=== PATIENT | male | born 1960 | race Caucasian/White ===

== ENCOUNTER 2016-09-21 11:35 | Inpatient (IN) | payer OTHER ==
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
[2016-09-21] MEDS ORDERED: MORPHINE SULFATE 10 MG/ML INJ IV ONE (13:11)
[2016-09-21] MEDS ORDERED: ONDANSETRON 4 MG TAB.RAPDIS PO PRN (14:29)
[2016-09-21] MEDS ORDERED: IPRATROPIUM/ALBUTEROL 0.5-2.5 MG/3 ML AMPUL NEB PRN (14:29)
[2016-09-21] MEDS ORDERED: GLUCAGON,HUMAN RECOMB 1 MG INJ SUBCUT PRN (14:29)
[2016-09-21] MEDS ORDERED: ACETAMINOPHEN 325 MG TABLET PO PRN (14:29)
[2016-09-21] MEDS ORDERED: ONDANSETRON HCL INJ/PF 4 MG/2 ML SDV IV PRN (14:29)
[2016-09-21] MEDS ORDERED: DEXTROSE 40% GEL 15 GM TUBE PO PRN ×2 (14:29)
[2016-09-21] MEDS ORDERED: NORMAL SALINE 1000 ML 1,000 ML IV PRN (14:29)
[2016-09-21] MEDS ORDERED: DEXTROSE 50%-WATER 25 GM/50 ML DISP.SYRIN IV PRN ×2 (14:29)
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
[2016-09-21 15:57] LABS: ABSOLUTE BASOPHILS # (AUTO) 0.1 10^3/uL (0.0-0.2); ABSOLUTE EOSINOPHILS # (AUTO) 0.1 10^3/uL (0.0-0.6); ABSOLUTE LYMPHOCYTES (AUTO) 1.4 10^3/uL (0.5-4.7); ABSOLUTE MONOCYTES (AUTO) 0.5 10^3/uL (0.1-1.4); ABSOLUTE NEUT (AUTO) 8.2 10^3/uL (1.7-8.2); BASOPHILS % (AUTO) 0.7 % (0-2); EOSINOPHILS % (AUTO) 0.6 % (0-6); HEMATOCRIT 45.8 % (37.9-51.0); HEMOGLOBIN 15.5 g/dL (13.5-17.0); HGB HCT DIFFERENCE 0.7; LYMPHOCYTES % (AUTO) 13.8 % (13-45); MEAN CORPUSCULAR HEMOGLOBIN 32.2 pg (27.0-33.4); MEAN CORPUSCULAR HGB CONC 33.9 g/dL (32.0-36.0); MEAN CORPUSCULAR VOLUME 95 fl (80-97); MONOCYTES % (AUTO) 5.3 % (3-13); RED BLOOD COUNT 4.82 10^6/uL (4.35-5.55); RED CELL DISTRIBUTION WIDTH 12.6 % (11.5-14.0); SEGMENTED NEUTROPHILS % (AUTO) 79.6 % (42-78); WHITE BLOOD COUNT 10.3 10^3/uL (4.0-10.5)
[2016-09-21 16:24] LABS: ALANINE AMINOTRANSFERASE 25 U/L (21-72); ALKALINE PHOSPHATASE 63 U/L (38-126); ANION GAP 11 (5-19); ASPARTATE AMINO TRANSFERASE 23 U/L (17-59); BILIRUBIN,DIRECT 0.5 mg/dL (0.0-0.4); BLOOD UREA NITROGEN 8 mg/dL (7-20); CALCIUM 9.3 mg/dL (8.4-10.2); CARBON DIOXIDE 24 mmol/L (22-30); CHLORIDE 104 mmol/L (98-107); CREATININE RESULT 0.63 mg/dL (0.52-1.25); GLUCOSE 100 mg/dL (75-110); POTASSIUM 4.1 mmol/L (3.6-5.0); SODIUM 139.1 mmol/L (137-145); TOTAL PROTEIN 6.6 g/dL (6.3-8.2)
[2016-09-21 18:10] LABS: PROTHROMBIN TIME 12.9 SEC (11.4-15.4)
[2016-09-21 18:11] LABS: PARTIAL THROMBOPLASTIN TIME 34.9 SEC (23.5-35.8)
[2016-09-21] MEDS: NICOTINE 14 MG/24 HR PATCH.TD24 TD SCH (18:28)
[2016-09-21] MEDS: MORPHINE SULFATE 10 MG/ML INJ IV PRN ×2 (18:29→22:01)
--- NOTE | 2016-09-21 18:55 | EKG REPORT ---
SEVERITY:- BORDERLINE ECG - SINUS RHYTHM BORDERLINE INFERIOR Q WAVES : Confirmed by: Wero Ramos MD 21-Sep-2016 18:55:07
[2016-09-21 18:59] LABS: APPEARANCE,URINE CLEAR; BILIRUBIN,URINE NEGATIVE (NEGATIVE); GLUCOSE, URINE NEGATIVE (NEGATIVE); KETONES,URINE NEGATIVE (NEGATIVE); LEUKOCYTE ESTERASE,URINE NEGATIVE (NEGATIVE); NITRITE,URINE NEGATIVE (NEGATIVE); PROTEIN,URINE NEGATIVE (NEGATIVE); URINE SPECIFIC GRAVITY 1.015; UROBILINOGEN,URINE NEGATIVE mg/dL (<2.0)
[2016-09-21] MEDS: FAMOTIDINE 20 MG TABLET PO SCH (21:06)
[2016-09-21] MEDS ORDERED: RINGERS SOLUTION,LACTATED 1,000 ML IV PRN (23:59)
[2016-09-22] MEDS: MORPHINE SULFATE 10 MG/ML INJ IV PRN ×4 (02:43→18:50)
[2016-09-22 05:44] LABS: HEMATOCRIT 42.5 % (37.9-51.0); HEMOGLOBIN 14.6 g/dL (13.5-17.0); HGB HCT DIFFERENCE 1.3; MEAN CORPUSCULAR HEMOGLOBIN 32.6 pg (27.0-33.4); MEAN CORPUSCULAR HGB CONC 34.3 g/dL (32.0-36.0); MEAN CORPUSCULAR VOLUME 95 fl (80-97); RED BLOOD COUNT 4.46 10^6/uL (4.35-5.55); RED CELL DISTRIBUTION WIDTH 12.8 % (11.5-14.0); WHITE BLOOD COUNT 8.1 10^3/uL (4.0-10.5)
[2016-09-22 06:07] LABS: ANION GAP 12 (5-19); BLOOD UREA NITROGEN 8 mg/dL (7-20); CALCIUM 8.9 mg/dL (8.4-10.2); CARBON DIOXIDE 24 mmol/L (22-30); CHLORIDE 106 mmol/L (98-107); CREATININE RESULT 0.61 mg/dL (0.52-1.25); GLUCOSE 92 mg/dL (75-110); POTASSIUM 3.9 mmol/L (3.6-5.0); SODIUM 141.5 mmol/L (137-145)
[2016-09-22] MEDS ORDERED: CEFAZOLIN INJ 1 GM VIAL ONE (07:33)
[2016-09-22] MEDS ORDERED: IBUPROFEN INJ 800 MG/8 ML VIAL IV ONE (07:49)
[2016-09-22] MEDS ORDERED: ACETAMINOPHEN 100 ML IV ONE (07:49)
[2016-09-22] MEDS ORDERED: MIDAZOLAM 2 MG/2 ML INJ ONE (07:49)
[2016-09-22] MEDS ORDERED: KETAMINE HCL INJ 500 MG/10 ML VIAL ONE (07:49)
[2016-09-22] MEDS ORDERED: PROPOFOL INJ 200 MG/20 ML VIAL IV ONE (07:49)
[2016-09-22] MEDS ORDERED: ONDANSETRON HCL INJ/PF 4 MG/2 ML SDV ONE (07:49)
[2016-09-22] MEDS: CEFAZOLIN 2 GM/D5W RTU 2 GM/50 ML RTUPB IV PRN ×2 (08:08→08:36)
[2016-09-22] MEDS ORDERED: MORPHINE SULFATE 10 MG/ML INJ IV PRN (08:25)
[2016-09-22] MEDS ORDERED: MEPERIDINE HCL/PF INJ 25 MG/1 ML DISP.SYRIN IV PRN (08:25)
[2016-09-22] MEDS ORDERED: FENTANYL CITRATE INJ/PF 100 MCG/2 ML AMPUL IV PRN ×3 (08:25)
[2016-09-22] MEDS ORDERED: PROMETHAZINE HCL INJ 25 MG/1 ML VIAL IV PRN (08:25)
[2016-09-22] MEDS ORDERED: DIPHENHYDRAMINE HCL 50 MG/ML VIAL IV PRN (08:25)
--- NOTE | 2016-09-22 08:51 | Operative Report ---
Operative Report DATE OF SURGERY: 09/22/16 PREOPERATIVE DIAGNOSIS: Right intratrochanteric femur fracture OPERATION: Open reduction internal fixation ANESTHESIA: Spinal ESTIMATED BLOOD LOSS: 75 PROCEDURE: Implants used: Tammy gamma 3 11 x 400 x 130 titanium nail, 105 mm proximal interlock, 57.5 mm distal interlock With the patient supine on the fracture table the left lower extremity is not manipulated because it's a minimally displaced fracture. Subsequent prepped and draped in a sterile fashion. A pin is placed percutaneously into the greater trochanter. A combined reamers is used to fashion a cortical opening. Subsequently ball-tipped guide reno was placed down the femur. Femoral nail length is measured to be 400. Now is then reamed sequentially using flexible reamers until 12.5 mm reamer is passed. Subsequently the gamma 3 nail, 400 x 1 30 x 11, his advanced down the femoral canal to appropriate depth for the proximal interlock to be in the inferior half of the femoral head. Lock pin is then placed followed by combined reamer and the 105 mm proximal interlock. This is locked in place from above. A distal interlock is then placed freehand through the dynamic hole using fluoroscopy. At this point the wounds irrigated and closed using interrupted Vicryl followed by shanta. Sterile compressive dressings are applied and the patient's returned to PACU in satisfactory condition.
[2016-09-22] MEDS ORDERED: INSULIN LISPRO 100 UNIT/ML 3 ML VIAL SUBCUT PRN (09:12)
[2016-09-22] MEDS ORDERED: DEXTROSE 50%-WATER SYRINGE 25 GM/50 ML DOSE IV PRN (09:12)
[2016-09-22] MEDS ORDERED: DEXTROSE 50%-WATER SYRINGE 12.5 GM/25 ML DOSE IV PRN (09:12)
[2016-09-22] MEDS ORDERED: DEXTROSE 40% GEL 15 GM TUBE X 2 PO PRN (09:12)
[2016-09-22] MEDS ORDERED: DEXTROSE 40% GEL 15 GM TUBE PO PRN (09:12)
[2016-09-22] MEDS ORDERED: GLUCAGON,HUMAN RECOMB 1 MG INJ IM PRN (09:12)
--- NOTE | 2016-09-22 10:41 | PDOC PROGRESS REPORT ---
Subjective Progress Note for:: 09/22/16 Subjective:: Patient reports minimal pain after having surgery on his hip. Physical Exam Vital Signs: Temp Pulse Resp BP Pulse Ox 97.7 F 72 16 104/76 95 09/22/16 09:32 09/22/16 09:32 09/22/16 09:32 09/22/16 09:32 09/22/16 09:32 Intake & Output 09/21/16 09/22/16 09/23/16 06:59 06:59 06:59 Intake Total 250 1200 Output Total 125 150 Balance 125 1050 Weight 67.2 kg General appearance: PRESENT: no acute distress Eye exam: PRESENT: conjunctiva pink. ABSENT: scleral icterus Mouth exam: PRESENT: moist, tongue midline Neck exam: ABSENT: JVD Respiratory exam: PRESENT: clear to auscultation tiana. ABSENT: rales, rhonchi, wheezes Cardiovascular exam: PRESENT: RRR. ABSENT: diastolic murmur, rubs, systolic murmur GI/Abdominal exam: PRESENT: normal bowel sounds, soft. ABSENT: distended, guarding, mass, organolmegaly, rebound, tenderness Extremities exam: ABSENT: calf tenderness, clubbing, pedal edema Neurological exam: PRESENT: alert, awake, oriented to person, oriented to place , oriented to time, oriented to situation, CN II-XII grossly intact. ABSENT: motor sensory deficit Psychiatric exam: PRESENT: appropriate affect Skin exam: PRESENT: dry, intact, warm. ABSENT: cyanosis, rash Results Laboratory Results: 09/22/16 04:32 09/22/16 04:32 09/21/16 09/21/16 09/21/16 15:38 15:38 18:18 WBC 10.3 RBC 4.82 Hgb 15.5 Hct 45.8 MCV 95 MCH 32.2 MCHC 33.9 RDW 12.6 Plt Count 174 Seg Neutrophils % 79.6 H Lymphocytes % 13.8 Monocytes % 5.3 Eosinophils % 0.6 Basophils % 0.7 Absolute Neutrophils 8.2 Absolute Lymphocytes 1.4 Absolute Monocytes 0.5 Absolute Eosinophils 0.1 Absolute Basophils 0.1 Sodium 139.1 Potassium 4.1 Chloride 104 Carbon Dioxide 24 Anion Gap 11 BUN 8 Creatinine 0.63 Est GFR ( Amer) > 60 Est GFR (Non-Af Amer) > 60 Glucose 100 Calcium 9.3 Total Bilirubin 2.0 H AST 23 ALT 25 Alkaline Phosphatase 63 Total Protein 6.6 Albumin 4.0 Urine Color YELLOW Urine Appearance CLEAR Urine pH 5.0 Ur Specific [place] 1.015 Urine Protein NEGATIVE Urine Glucose (UA) NEGATIVE Urine Ketones NEGATIVE Urine Blood SMALL H Urine Nitrite NEGATIVE Ur Leukocyte Esterase NEGATIVE Urine WBC (Auto) 1 Urine RBC (Auto) 2 09/22/16 09/22/16 04:32 04:32 WBC 8.1 RBC 4.46 Hgb 14.6 Hct 42.5 MCV 95 MCH 32.6 MCHC 34.3 RDW 12.8 Plt Count 173 Seg Neutrophils % Lymphocytes % Monocytes % Eosinophils % Basophils % Absolute Neutrophils Absolute Lymphocytes Absolute Monocytes Absolute Eosinophils Absolute Basophils Sodium 141.5 Potassium 3.9 Chloride 106 Carbon Dioxide 24 Anion Gap 12 BUN 8 Creatinine 0.61 Est GFR ( Amer) > 60 Est GFR (Non-Af Amer) > 60 Glucose 92 Calcium 8.9 Total Bilirubin AST ALT Alkaline Phosphatase Total Protein Albumin Urine Color Urine Appearance Urine pH Ur Specific [place] Urine Protein Urine Glucose (UA) Urine Ketones Urine Blood Urine Nitrite Ur Leukocyte Esterase Urine WBC (Auto) Urine RBC (Auto) Impressions: Chest X-Ray 09/21/16 00:00 IMPRESSION: NO ACUTE RADIOGRAPHIC FINDING IN THE CHEST. Femur X-Ray 09/21/16 11:58 IMPRESSION: Hairline nondisplaced fracture through the right proximal femur intertrochanteric region. Report called to Dr. Rodriguez in the emergency room. Pelvis CT 09/21/16 13:10 IMPRESSION: Incomplete acute hairline nondisplaced fracture through the anterior right femoral neck intratrochanteric region Fluoroscopy 09/22/16 00:00 IMPRESSION: IMAGE(S) OBTAINED DURING PROCEDURE. Hip/Pelvis X-Ray 09/22/16 00:00 IMPRESSION: IMAGE(S) OBTAINED DURING PROCEDURE. Assessment & Plan - Diagnosis (1) Intertrochanteric fracture of right hip Qualifiers: Encounter type: initial encounter Fracture type: closed Qualified Code(s): S72.141A - Displaced intertrochanteric fracture of right femur, initial encounter for closed fracture Is this a current diagnosis for this admission?: YesPlan: Patient doing well postoperatively. (2) Chronic back pain Is this a current diagnosis for this admission?: YesPlan: Patient has been on oxycodone chronically. We'll give morphine as needed. - Time Time Spent with patient: 25-34 minutes - Inpatient Certification Medical Necessity: Need Close Monitoring Due to Risk of Patient Decompensation, Need for Pain Control
[2016-09-22] MEDS: FAMOTIDINE 20 MG TABLET PO SCH ×2 (11:24→21:50)
[2016-09-22] MEDS ORDERED: RINGERS SOLUTION,LACTATED 1,000 ML IV ONE (13:30)
[2016-09-22] MEDS: OXYCODONE HCL IR 5 MG TABLET PO PRN ×2 (14:14→21:50)
[2016-09-22] MEDS: CEFAZOLIN 2 GM/D5W RTU 2 GM/50 ML RTUPB IV SCH ×2 (14:15→21:50)
[2016-09-22] MEDS: OXYCODONE HCL SR 10 MG TABLET PO SCH ×2 (14:17→17:19)
[2016-09-22] MEDS ORDERED: DICYCLOMINE HCL 20 MG TABLET PO PRN (15:15)
[2016-09-22] MEDS: NICOTINE 14 MG/24 HR PATCH.TD24 TD SCH (17:19)
[2016-09-22] MEDS: RIVAROXABAN 10 MG TABLET PO SCH (21:50)
[2016-09-23] MEDS: MORPHINE SULFATE 10 MG/ML INJ IV PRN (00:44)
[2016-09-23] MEDS: OXYCODONE HCL IR 5 MG TABLET PO PRN ×3 (06:55→20:16)
[2016-09-23 07:30] LABS: ABSOLUTE EOSINOPHILS # (AUTO) 0.2 10^3/uL (0.0-0.6); ABSOLUTE LYMPHOCYTES (AUTO) 1.6 10^3/uL (0.5-4.7); ABSOLUTE MONOCYTES (AUTO) 0.7 10^3/uL (0.1-1.4); ABSOLUTE NEUT (AUTO) 6.5 10^3/uL (1.7-8.2); BASOPHILS % (AUTO) 0.3 % (0-2); EOSINOPHILS % (AUTO) 1.9 % (0-6); HEMATOCRIT 39.5 % (37.9-51.0); HEMOGLOBIN 13.5 g/dL (13.5-17.0); LYMPHOCYTES % (AUTO) 17.4 % (13-45); MEAN CORPUSCULAR HEMOGLOBIN 32.5 pg (27.0-33.4); MEAN CORPUSCULAR VOLUME 96 fl (80-97); MONOCYTES % (AUTO) 7.8 % (3-13); RED BLOOD COUNT 4.14 10^6/uL (4.35-5.55); RED CELL DISTRIBUTION WIDTH 12.7 % (11.5-14.0); SEGMENTED NEUTROPHILS % (AUTO) 72.6 % (42-78)
[2016-09-23 07:31] LABS: ANION GAP 8 (5-19); BLOOD UREA NITROGEN 5 mg/dL (7-20); CALCIUM 8.6 mg/dL (8.4-10.2); CARBON DIOXIDE 28 mmol/L (22-30); CHLORIDE 102 mmol/L (98-107); CREATININE RESULT 0.65 mg/dL (0.52-1.25); GLUCOSE 101 mg/dL (75-110); POTASSIUM 3.7 mmol/L (3.6-5.0); SODIUM 137.6 mmol/L (137-145)
[2016-09-23] MEDS: FAMOTIDINE 20 MG TABLET PO SCH ×2 (09:16→22:26)
[2016-09-23] MEDS ORDERED: OXYCODONE HCL SR 10 MG TABLET PO SCH (10:00)
--- NOTE | 2016-09-23 10:11 | PDOC PROGRESS REPORT ---
Subjective Progress Note for:: 09/23/16 Subjective:: Patient reports that morphine does not relieve his pain. Physical Exam Vital Signs: Temp Pulse Resp BP Pulse Ox 98.7 F 95 16 99/68 L 94 09/23/16 07:19 09/23/16 07:19 09/23/16 07:19 09/23/16 07:19 09/23/16 07:19 Intake & Output 09/22/16 09/23/16 09/24/16 06:59 06:59 06:59 Intake Total 250 4495 Output Total 125 1775 Balance 125 2720 Weight 67.2 kg General appearance: PRESENT: no acute distress Eye exam: PRESENT: conjunctiva pink. ABSENT: scleral icterus Mouth exam: PRESENT: moist, tongue midline Neck exam: ABSENT: JVD Respiratory exam: PRESENT: clear to auscultation tiana. ABSENT: rales, rhonchi, wheezes Cardiovascular exam: PRESENT: RRR. ABSENT: diastolic murmur, rubs, systolic murmur GI/Abdominal exam: PRESENT: normal bowel sounds, soft. ABSENT: distended, guarding, mass, organolmegaly, rebound, tenderness Extremities exam: ABSENT: calf tenderness, clubbing, pedal edema Neurological exam: PRESENT: alert, awake, oriented to person, oriented to place , oriented to time, oriented to situation, CN II-XII grossly intact. ABSENT: motor sensory deficit Psychiatric exam: PRESENT: appropriate affect Skin exam: PRESENT: dry, intact, warm. ABSENT: cyanosis, rash Results Laboratory Results: 09/23/16 06:24 09/23/16 06:24 09/23/16 09/23/16 06:24 06:24 WBC 9.0 RBC 4.14 L Hgb 13.5 Hct 39.5 MCV 96 MCH 32.5 MCHC 34.0 RDW 12.7 Plt Count 150 Seg Neutrophils % 72.6 Lymphocytes % 17.4 Monocytes % 7.8 Eosinophils % 1.9 Basophils % 0.3 Absolute Neutrophils 6.5 Absolute Lymphocytes 1.6 Absolute Monocytes 0.7 Absolute Eosinophils 0.2 Absolute Basophils 0.0 Sodium 137.6 Potassium 3.7 Chloride 102 Carbon Dioxide 28 Anion Gap 8 BUN 5 L Creatinine 0.65 Est GFR ( Amer) > 60 Est GFR (Non-Af Amer) > 60 Glucose 101 Calcium 8.6 Impressions: Chest X-Ray 09/21/16 00:00 IMPRESSION: NO ACUTE RADIOGRAPHIC FINDING IN THE CHEST. Femur X-Ray 09/21/16 11:58 IMPRESSION: Hairline nondisplaced fracture through the right proximal femur intertrochanteric region. Report called to Dr. Rodriguez in the emergency room. Pelvis CT 09/21/16 13:10 IMPRESSION: Incomplete acute hairline nondisplaced fracture through the anterior right femoral neck intratrochanteric region Fluoroscopy 09/22/16 00:00 IMPRESSION: IMAGE(S) OBTAINED DURING PROCEDURE. Hip/Pelvis X-Ray 09/22/16 00:00 IMPRESSION: IMAGE(S) OBTAINED DURING PROCEDURE. Assessment & Plan - Diagnosis (1) Intertrochanteric fracture of right hip Qualifiers: Encounter type: initial encounter Fracture type: closed Qualified Code(s): S72.141A - Displaced intertrochanteric fracture of right femur, initial encounter for closed fracture Is this a current diagnosis for this admission?: YesPlan: Patient having some pain. Will increase his oxycodone dose as he reports that works much more effectively for him (2) Chronic back pain Is this a current diagnosis for this admission?: YesPlan: Patient has been on oxycodone chronically. We'll give morphine as needed. - Time Time Spent with patient: 25-34 minutes - Inpatient Certification Medical Necessity: Need Close Monitoring Due to Risk of Patient Decompensation
[2016-09-23] MEDS: IBUPROFEN 800 MG in NORMAL SALINE 250 ML IV SCH (17:20)
[2016-09-23] MEDS: NICOTINE 14 MG/24 HR PATCH.TD24 TD SCH (17:20)
[2016-09-23] MEDS: OXYCODONE HCL SR 10 MG TABLET PO SCH (22:25)
[2016-09-23] MEDS: RIVAROXABAN 10 MG TABLET PO SCH (22:26)
[2016-09-24] MEDS: IBUPROFEN 800 MG in NORMAL SALINE 250 ML IV SCH ×3 (01:50→18:08)
[2016-09-24] MEDS: OXYCODONE HCL IR 5 MG TABLET PO PRN ×2 (01:51→20:07)
[2016-09-24 06:17] LABS: ABSOLUTE EOSINOPHILS # (AUTO) 0.4 10^3/uL (0.0-0.6); ABSOLUTE LYMPHOCYTES (AUTO) 1.5 10^3/uL (0.5-4.7); ABSOLUTE MONOCYTES (AUTO) 0.5 10^3/uL (0.1-1.4); ABSOLUTE NEUT (AUTO) 4.6 10^3/uL (1.7-8.2); BASOPHILS % (AUTO) 0.7 % (0-2); EOSINOPHILS % (AUTO) 5.2 % (0-6); HEMATOCRIT 36.7 % (37.9-51.0); HEMOGLOBIN 12.7 g/dL (13.5-17.0); HGB HCT DIFFERENCE 1.4; LYMPHOCYTES % (AUTO) 21.5 % (13-45); MEAN CORPUSCULAR HEMOGLOBIN 32.8 pg (27.0-33.4); MEAN CORPUSCULAR HGB CONC 34.6 g/dL (32.0-36.0); MEAN CORPUSCULAR VOLUME 95 fl (80-97); MONOCYTES % (AUTO) 7.3 % (3-13); RED BLOOD COUNT 3.88 10^6/uL (4.35-5.55); RED CELL DISTRIBUTION WIDTH 12.9 % (11.5-14.0); SEGMENTED NEUTROPHILS % (AUTO) 65.3 % (42-78); WHITE BLOOD COUNT 7.1 10^3/uL (4.0-10.5)
[2016-09-24 06:36] LABS: ANION GAP 10 (5-19); BLOOD UREA NITROGEN 8 mg/dL (7-20); CALCIUM 8.6 mg/dL (8.4-10.2); CARBON DIOXIDE 27 mmol/L (22-30); CHLORIDE 102 mmol/L (98-107); CREATININE RESULT 0.64 mg/dL (0.52-1.25); GLUCOSE 133 mg/dL (75-110); POTASSIUM 3.2 mmol/L (3.6-5.0); SODIUM 139.2 mmol/L (137-145)
--- NOTE | 2016-09-24 09:21 | PDOC PROGRESS REPORT ---
Subjective Progress Note for:: 09/24/16 Subjective:: Patient complains of pain in his right hip. Physical Exam Vital Signs: Temp Pulse Resp BP Pulse Ox 99.0 F 83 20 96/63 L 94 09/24/16 07:58 09/24/16 07:58 09/24/16 07:58 09/24/16 07:58 09/24/16 07:58 Intake & Output 09/23/16 09/24/16 09/25/16 06:59 06:59 06:59 Intake Total 4495 2400 Output Total 1775 2160 Balance 2720 240 Weight 70.2 kg General appearance: PRESENT: no acute distress Eye exam: PRESENT: conjunctiva pink. ABSENT: scleral icterus Mouth exam: PRESENT: moist, tongue midline Neck exam: ABSENT: JVD Respiratory exam: PRESENT: clear to auscultation tiana. ABSENT: rales, rhonchi, wheezes Cardiovascular exam: PRESENT: RRR. ABSENT: diastolic murmur, rubs, systolic murmur GI/Abdominal exam: PRESENT: normal bowel sounds, soft. ABSENT: distended, guarding, mass, organolmegaly, rebound, tenderness Extremities exam: ABSENT: calf tenderness, clubbing, pedal edema Neurological exam: PRESENT: alert, awake, oriented to person, oriented to place , oriented to time, oriented to situation, CN II-XII grossly intact. ABSENT: motor sensory deficit Psychiatric exam: PRESENT: appropriate affect Results Laboratory Results: 09/24/16 05:47 09/24/16 05:47 09/24/16 09/24/16 05:47 05:47 WBC 7.1 RBC 3.88 L Hgb 12.7 L Hct 36.7 L MCV 95 MCH 32.8 MCHC 34.6 RDW 12.9 Plt Count 164 Seg Neutrophils % 65.3 Lymphocytes % 21.5 Monocytes % 7.3 Eosinophils % 5.2 Basophils % 0.7 Absolute Neutrophils 4.6 Absolute Lymphocytes 1.5 Absolute Monocytes 0.5 Absolute Eosinophils 0.4 Absolute Basophils 0.0 Sodium 139.2 Potassium 3.2 L Chloride 102 Carbon Dioxide 27 Anion Gap 10 BUN 8 Creatinine 0.64 Est GFR ( Amer) > 60 Est GFR (Non-Af Amer) > 60 Glucose 133 H Calcium 8.6 Impressions: Chest X-Ray 09/21/16 00:00 IMPRESSION: NO ACUTE RADIOGRAPHIC FINDING IN THE CHEST. Femur X-Ray 09/21/16 11:58 IMPRESSION: Hairline nondisplaced fracture through the right proximal femur intertrochanteric region. Report called to Dr. Rodriguez in the emergency room. Pelvis CT 09/21/16 13:10 IMPRESSION: Incomplete acute hairline nondisplaced fracture through the anterior right femoral neck intratrochanteric region Fluoroscopy 09/22/16 00:00 IMPRESSION: IMAGE(S) OBTAINED DURING PROCEDURE. Hip/Pelvis X-Ray 09/22/16 00:00 IMPRESSION: IMAGE(S) OBTAINED DURING PROCEDURE. Assessment & Plan - Diagnosis (1) Intertrochanteric fracture of right hip Qualifiers: Encounter type: initial encounter Fracture type: closed Qualified Code(s): S72.141A - Displaced intertrochanteric fracture of right femur, initial encounter for closed fracture Is this a current diagnosis for this admission?: YesPlan: Patient having some pain. Continue with physical therapy. If he continues to improve we can hopefully discharge home tomorrow. (2) Chronic back pain Is this a current diagnosis for this admission?: YesPlan: Patient has been on oxycodone chronically. We'll give morphine as needed. (3) Hypokalemia Is this a current diagnosis for this admission?: YesPlan: We'll give oral replacements and continue to monitor his potassium. - Time Time Spent with patient: 15-24 minutes - Inpatient Certification Medical Necessity: Need Close Monitoring Due to Risk of Patient Decompensation - Plan Summary Plan Summary: If he continues to improve we can hopefully discharge home tomorrow.
[2016-09-24] MEDS: OXYCODONE HCL SR 10 MG TABLET PO SCH ×2 (09:24→22:05)
[2016-09-24] MEDS: POTASSIUM CHLORIDE 10 MEQ TABLET.SA PO SCH ×2 (09:25→22:06)
[2016-09-24] MEDS: FAMOTIDINE 20 MG TABLET PO SCH ×2 (09:25→22:06)
[2016-09-24] MEDS: NICOTINE 14 MG/24 HR PATCH.TD24 TD SCH (18:08)
[2016-09-24] MEDS: RIVAROXABAN 10 MG TABLET PO SCH (22:05)
[2016-09-25] MEDS: IBUPROFEN 800 MG in NORMAL SALINE 250 ML IV SCH (01:52)
[2016-09-25] MEDS: OXYCODONE HCL IR 5 MG TABLET PO PRN (01:52)
[2016-09-25 06:01] LABS: ABSOLUTE EOSINOPHILS # (AUTO) 0.3 10^3/uL (0.0-0.6); ABSOLUTE LYMPHOCYTES (AUTO) 1.4 10^3/uL (0.5-4.7); ABSOLUTE MONOCYTES (AUTO) 0.5 10^3/uL (0.1-1.4); ABSOLUTE NEUT (AUTO) 3.6 10^3/uL (1.7-8.2); BASOPHILS % (AUTO) 0.6 % (0-2); EOSINOPHILS % (AUTO) 5.6 % (0-6); HEMATOCRIT 34.4 % (37.9-51.0); HGB HCT DIFFERENCE 1.6; LYMPHOCYTES % (AUTO) 24.5 % (13-45); MEAN CORPUSCULAR VOLUME 94 fl (80-97); MONOCYTES % (AUTO) 8.1 % (3-13); RED BLOOD COUNT 3.65 10^6/uL (4.35-5.55); RED CELL DISTRIBUTION WIDTH 12.5 % (11.5-14.0); SEGMENTED NEUTROPHILS % (AUTO) 61.2 % (42-78); WHITE BLOOD COUNT 5.8 10^3/uL (4.0-10.5)
[2016-09-25 06:13] LABS: ANION GAP 6 (5-19); BLOOD UREA NITROGEN 10 mg/dL (7-20); CALCIUM 8.7 mg/dL (8.4-10.2); CARBON DIOXIDE 28 mmol/L (22-30); CHLORIDE 105 mmol/L (98-107); CREATININE RESULT 0.67 mg/dL (0.52-1.25); GLUCOSE 85 mg/dL (75-110); SODIUM 139.3 mmol/L (137-145)
[2016-09-25 06:34] LABS: POTASSIUM 4.5 mmol/L (3.6-5.0)
--- NOTE | 2016-09-25 06:52 | PDOC DISCHARGE SUMMARY ---
General - Admit/Disc Date/PCP Admission Date/Primary Care Provider: 09/21/16 14:29 STEPAN FERNANDES MD Discharge Date: 09/25/16 - Discharge Diagnosis (1) Intertrochanteric fracture of right hip Is this a current diagnosis for this admission?: Yes - Additional Information Resuscitation Status: Full Code Discharge Diet: As Tolerated, Regular Discharge Activity: Activity As Tolerated, Balance Activity w/Rest, No Driving Home Medications: Dicyclomine HCl [Bentyl 20 mg Tablet] 20 mg PO QIDP PRN #0 tablet 09/25/16 Famotidine [Pepcid 20 mg Tablet] 20 mg PO Q12 #0 tablet 09/25/16 Nicotine [Nicoderm 14 mg/24 Hr Transdermal Patch] 1 each TD QPM #0 patch.td24 Oxycodone HCl [Oxy-Ir 5 mg Tablet] 10 mg PO Q6HP PRN #0 tablet 09/25/16 Oxycodone HCl [Oxycontin Sr 10 mg Tablet] 40 mg PO Q12 #0 tab.sr.12h 09/25/16 Rivaroxaban [Xarelto 10 mg Tablet] 10 mg PO QHS #0 tablet 09/25/16 History of Present Illness Patient complains of: Right hip pain History of Present Illness: DANNY MAYES is a 56 year old male sustained a right hip injury. In attempting to fix a go-cart. He is brought to the emergency room where minimally displaced right intratrochanteric femur fracture was identified. The patient was taken to the operating room, underwent an open reduction internal fixation which was uncomplicated. His returned to floor in satisfactory condition. Postoperative rehabilitation is largely been limited by the patient's pain and opioid tolerance Hospital Course Hospital Course: Patient's made through the emergency room and undergoes an open reduction internal fixation of the hip. He seen by physical therapy and begun on a weightbearing as tolerated ambulatory program. Analgesia remains problematic and opioid dose continues be escalated throughout his stay. Physical Exam Vital Signs: Temp Pulse Resp BP Pulse Ox 36.7 C 70 15 92/53 L 97 09/24/16 23:52 09/24/16 23:52 09/24/16 23:52 09/24/16 23:52 09/24/16 23:52 Intake & Output 09/23/16 09/24/16 09/25/16 06:59 06:59 06:59 Intake Total 4495 2400 1480 Output Total 1775 2160 Balance 2720 240 1480 Weight 70.2 kg General appearance: PRESENT: mild distress Head exam: PRESENT: normocephalic Eye exam: PRESENT: EOMI Respiratory exam: PRESENT: unlabored Cardiovascular exam: PRESENT: RRR Pulses: PRESENT: +1 pedal pulses bilateral Vascular exam: PRESENT: normal capillary refill GI/Abdominal exam: PRESENT: soft Rectal exam: PRESENT: deferred Extremities exam: PRESENT: other - Right lower extremity dressings are clean dry and intact. There is mild edema. Distal neurovascular examinations intact. Neurological exam: PRESENT: alert, awake, oriented to person, oriented to place , oriented to time, oriented to situation. ABSENT: motor sensory deficit Psychiatric exam: PRESENT: appropriate affect, normal mood. ABSENT: homicidal ideation, suicidal ideation Skin exam: PRESENT: dry, intact, warm. ABSENT: cyanosis, rash Results Laboratory Results: 09/25/16 05:07 09/25/16 05:07 09/25/16 09/25/16 05:07 05:07 WBC 5.8 RBC 3.65 L Hgb 12.0 L Hct 34.4 L MCV 94 MCH 33.0 MCHC 35.0 RDW 12.5 Plt Count 175 Seg Neutrophils % 61.2 Lymphocytes % 24.5 Monocytes % 8.1 Eosinophils % 5.6 Basophils % 0.6 Absolute Neutrophils 3.6 Absolute Lymphocytes 1.4 Absolute Monocytes 0.5 Absolute Eosinophils 0.3 Absolute Basophils 0.0 Sodium 139.3 Potassium 4.5 D Chloride 105 Carbon Dioxide 28 Anion Gap 6 BUN 10 Creatinine 0.67 Est GFR ( Amer) > 60 Est GFR (Non-Af Amer) > 60 Glucose 85 Calcium 8.7 Impressions: Chest X-Ray 09/21/16 00:00 IMPRESSION: NO ACUTE RADIOGRAPHIC FINDING IN THE CHEST. Femur X-Ray 09/21/16 11:58 IMPRESSION: Hairline nondisplaced fracture through the right proximal femur intertrochanteric region. Report called to Dr. Rodriguez in the emergency room. Pelvis CT 09/21/16 13:10 IMPRESSION: Incomplete acute hairline nondisplaced fracture through the anterior right femoral neck intratrochanteric region Fluoroscopy 09/22/16 00:00 IMPRESSION: IMAGE(S) OBTAINED DURING PROCEDURE. Hip/Pelvis X-Ray 09/22/16 00:00 IMPRESSION: IMAGE(S) OBTAINED DURING PROCEDURE. Status: Imported from PACS Plan Discharge Plan: Patient to be discharged home with home health nursing, home health physical therapy, we'll Walker, bedside commode. Follow-up will be with Dr. Alaniz in the [facility] for surgery and 2 weeks for staple removal. Time Spent: Less than 30 Minutes
[2016-09-25] MEDS: POTASSIUM CHLORIDE 10 MEQ TABLET.SA PO SCH (10:05)
[2016-09-25] MEDS: FAMOTIDINE 20 MG TABLET PO SCH (10:05)
[2016-09-25] MEDS: OXYCODONE HCL SR 10 MG TABLET PO SCH (10:05)
[2016-09-25 10:52] VITALS: BP 112/71
--- NOTE | 2016-09-25 11:43 | PDOC DISCHARGE SUMMARY ---
General - Admit/Disc Date/PCP Admission Date/Primary Care Provider: 09/21/16 14:29 STEPAN FERNANDES MD Discharge Date: 09/25/16 - Discharge Diagnosis (1) Intertrochanteric fracture of right hip Is this a current diagnosis for this admission?: Yes (2) Chronic back pain Is this a current diagnosis for this admission?: Yes (3) Hypokalemia Is this a current diagnosis for this admission?: Yes - Additional Information Resuscitation Status: Full Code Discharge Diet: As Tolerated, Regular Discharge Activity: Activity As Tolerated, Balance Activity w/Rest, No Driving Home Medications: Dicyclomine HCl [Bentyl 20 mg Tablet] 20 mg PO QIDP PRN #0 tablet 09/25/16 Famotidine [Pepcid 20 mg Tablet] 20 mg PO Q12 #0 tablet 09/25/16 Nicotine [Nicoderm 14 mg/24 Hr Transdermal Patch] 1 each TD QPM #0 patch.td24 Oxycodone HCl [Oxy-Ir 5 mg Tablet] 10 mg PO Q6HP PRN #30 tablet 09/25/16 Oxycodone HCl [Oxycontin Sr 10 mg Tablet] 40 mg PO Q12 #60 tab.sr.12h 09/25/16 Rivaroxaban [Xarelto 10 mg Tablet] 10 mg PO QHS #0 tablet 09/25/16 History of Present Illness History of Present Illness: DANNY MAYES is a 56 year old male who was working on a go cart and fell and fractured his right hip. Patient is admitted for surgical repair. Hospital Course Hospital Course: 56-year-old male admitted with a hip fracture. Patient underwent open reduction internal fixation without difficulty. The patient is improved but is still having problems with pain control as he does use chronic opioids because of his chronic back pain. Patient is discharged home and will do home physical therapy for rehabilitation. Physical Exam Vital Signs: Temp Pulse Resp BP Pulse Ox 98.0 F 75 16 112/71 98 09/25/16 10:47 09/25/16 10:47 09/25/16 10:47 09/25/16 10:47 09/25/16 10:47 Intake & Output 09/24/16 09/25/16 09/26/16 06:59 06:59 06:59 Intake Total 2400 1960 Output Total 2160 300 Balance 240 1660 Weight 70.2 kg 74.6 kg General appearance: PRESENT: no acute distress Eye exam: PRESENT: conjunctiva pink. ABSENT: scleral icterus Mouth exam: PRESENT: moist, tongue midline Neck exam: ABSENT: JVD Respiratory exam: PRESENT: clear to auscultation tiana. ABSENT: rales, rhonchi, wheezes Cardiovascular exam: PRESENT: RRR. ABSENT: diastolic murmur, rubs, systolic murmur Pulses: PRESENT: normal dorsalis pedis pul Vascular exam: PRESENT: normal capillary refill GI/Abdominal exam: PRESENT: normal bowel sounds, soft. ABSENT: distended, guarding, mass, organolmegaly, rebound, tenderness Extremities exam: ABSENT: calf tenderness, clubbing, pedal edema Neurological exam: PRESENT: alert, awake, oriented to person, oriented to place , oriented to time, oriented to situation, CN II-XII grossly intact. ABSENT: motor sensory deficit Psychiatric exam: PRESENT: appropriate affect Skin exam: PRESENT: dry, intact, warm. ABSENT: cyanosis, rash Results Laboratory Results: 09/25/16 05:07 09/25/16 05:07 09/25/16 09/25/16 05:07 05:07 WBC 5.8 RBC 3.65 L Hgb 12.0 L Hct 34.4 L MCV 94 MCH 33.0 MCHC 35.0 RDW 12.5 Plt Count 175 Seg Neutrophils % 61.2 Lymphocytes % 24.5 Monocytes % 8.1 Eosinophils % 5.6 Basophils % 0.6 Absolute Neutrophils 3.6 Absolute Lymphocytes 1.4 Absolute Monocytes 0.5 Absolute Eosinophils 0.3 Absolute Basophils 0.0 Sodium 139.3 Potassium 4.5 D Chloride 105 Carbon Dioxide 28 Anion Gap 6 BUN 10 Creatinine 0.67 Est GFR ( Amer) > 60 Est GFR (Non-Af Amer) > 60 Glucose 85 Calcium 8.7 Impressions: Chest X-Ray 09/21/16 00:00 IMPRESSION: NO ACUTE RADIOGRAPHIC FINDING IN THE CHEST. Femur X-Ray 09/21/16 11:58 IMPRESSION: Hairline nondisplaced fracture through the right proximal femur intertrochanteric region. Report called to Dr. Rodriguez in the emergency room. Pelvis CT 09/21/16 13:10 IMPRESSION: Incomplete acute hairline nondisplaced fracture through the anterior right femoral neck intratrochanteric region Fluoroscopy 09/22/16 00:00 IMPRESSION: IMAGE(S) OBTAINED DURING PROCEDURE. Hip/Pelvis X-Ray 09/22/16 00:00 IMPRESSION: IMAGE(S) OBTAINED DURING PROCEDURE. Qualifiers PATEINT BEING DISCHARGED WITH ANY OF THE FOLLOWING DIAGNOSIS?: No Plan Discharge Plan: Patient is discharged home with home health for physical therapy. Time Spent: Less than 30 Minutes
== END 2016-09-25 11:17 | disposition home or self-care (01) | DRG 481 ==
LOC: ER 11:35 → UNDOADMIN 13:54 → EH 13:54 → 5 16:07
PROVIDERS: ADMIT Internal Medicine; ATTEND Internal Medicine
PROC: 0QH636Z Insertion of Intramedullary Internal Fixation Device into Right Upper Femur, Percutaneous Approach (ICD-10-PCS; principal; 2016-09-22 08:00)
DX: S72.141A Displaced intertrochanteric fracture of right femur, initial encounter for closed fracture (principal); F11.20 Opioid dependence, uncomplicated; V89.1XXA Person injured in unspecified nonmotor-vehicle accident, nontraffic, initial encounter; E87.6 Hypokalemia; G89.29 Other chronic pain; M54.9 Dorsalgia, unspecified; F17.210 Nicotine dependence, cigarettes, uncomplicated; T14.8 Other injury of unspecified body region; Z79.899 Other long term (current) drug therapy; Z83.6 Family history of other diseases of the respiratory system
CPT/HCPCS: 01230; 36415; 71010; 72192; 80048; 80053; 81001; 82962; 85025; 85027; 85610; 85730; 93005; 93010; 99285; J0131; J0690; J1741; J2250; J2270; J2405; J2704; J3490; J7030; J7050; J7120